=== PATIENT | male | born 1995 | race Caucasian/White ===

== ENCOUNTER 2018-08-15 19:14 | Emergency (ER) | payer OTHER ==
[~2018-08-15] VITALS: Ht 177.8 cm; Wt 83.0 kg
[2018-08-15] MEDS ORDERED: LEVO75TA5 PO (19:25)
[2018-08-15 20:18] LABS: BASOPHILS # (AUTO) 0.03 x10^3/uL (0-0.1); BASOPHILS % (AUTO) 0 % (0-1); EOSINOPHILS % (AUTO) 1 % (1-7); LYMPHOCYTES % (AUTO) 13 % (22-44); MD NO; MEAN CORPUSCULAR HEMOGLOBIN 29.9 pg (27.5-34.5); MEAN CORPUSCULAR HGB CONC 33.8 g/dL (33.2-36.2); MEAN CORPUSCULAR VOLUME 88.4 fL (81-97); MEAN PLATELET VOLUME 8.3 fL (7.4-10.4); MONOCYTES # (AUTO) 0.56 x10^3/uL (0.2-0.8); MONOCYTES % (AUTO) 7 % (2-9); NEUTROPHILS # (AUTO) 6.81 x10^3/uL (1.8-6.8); NEUTROPHILS % (AUTO) 79 % (42-75); PLATELET COUNT 290 x10^3/uL (130-400); RED BLOOD COUNT 4.94 x10^6/uL (4.38-5.82); RED CELL DISTRIBUTION WIDTH 12.7 % (9.4-14.8)
[2018-08-15 20:26] LABS: ALANINE AMINOTRANSFERASE 18 U/L (12-78); ANION GAP 6 mmol/L (5-15); CALCIUM 8.1 mg/dL (8.5-10.1); CHLORIDE 107 mmol/L (98-107); CREATININE 1.01 mg/dL (0.7-1.3)
[2018-08-15 20:31] LABS: ALKALINE PHOSPHATASE 53 U/L (45-117); BILIRUBIN,TOTAL 0.4 mg/dL (0.2-1.0); FREE T4 (FREE THYROXINE) 1.05 ng/dL (0.76-1.46); TOTAL PROTEIN 7.6 g/dL (6.4-8.2); TROPONIN I < 0.015 ng/mL (0.000-0.045)
[2018-08-15 20:58] VITALS: BP 117/69
== END 2018-08-15 21:00 | disposition home or self-care (01) ==
LOC: ED 19:50
DX: R55 Syncope and collapse (principal); F12.10 Cannabis abuse, uncomplicated; R42 Dizziness and giddiness; R11.0 Nausea
CPT/HCPCS: 36415; 71046; 80053; 84439; 84443; 84484; 85025; 93005; 99284